=== PATIENT | female | born 1985 | race Caucasian/White ===

== ENCOUNTER 2019-09-27 09:44 | Outpatient (CLI) | payer MEDICAID, SELFPAY ==
--- NOTE | 2019-09-27 | US_ITS ---
WS: [id number] OBSTETRICAL ULTRASOUND COMPLETE HISTORY: SUPERVISION OF NORMAL FIRST IN SECOND TRIMESTER COMPARISON: None available. Single intrauterine gestation in breech presentation. Cervix is Closed and normal length. Cervical length is 5.0 cm. Normal amount of amniotic fluid surrounds the fetus. Placenta: Posterior, no previa or abruption. Placenta grade 1 Heart: 145 BPM. Four chambers are identified. No effusion on the few images submitted of the heart. Anatomy: Intracranial structures and spine are normal. kidneys, stomach and urinary bladd er are unremarkable. The abdominal wall appears abnormal. Areas of decreased echogenicity surrounding the thoracic cavity and abdominal wall. This is predominantly within the subcutaneous layer. Decreas ed echogenicity without fluid. There is no ascites. Cord insertion site is normal. Three-vessel cord. 4 extremities are present. profile: Unremarkable. Gender: Female. measurements: BPD = 5.1 cm = 21w3d HC = 19.0 cm = 21w2d AC = 16.4 cm = 21w3d FL = 3.6 cm = 21w3d AGA by ultrasound: 21 weeks 3 days RASHAUN by ultrasound: 02/04/2020 US/US OB >= 14 weeks fetus [id number] IMPRESSION: 1. Single intrauterine gestation of 21 weeks 3 days with an EDC of 02/04/2020. 2. Areas of decreased echogenicity in the subcutaneous soft tissues of the sruthi st and abdominal wall. No scalp edema. At this early gestational age this is no t likely adipose tissue. The possibility of hydrops fetalis/parvovirus infectio n should be considered. No pericardial fluid or ascites on this limited evaluat ion. 3. No anatomic abnormality.
== END 2019-09-27 09:45 | disposition home or self-care (01) ==
LOC: RADOUTREAD 11:05
PROVIDERS: Visit Provider Family Medicine
DX: Z76.89 Persons encountering health services in other specified circumstances (principal)

== ENCOUNTER 2019-11-17 10:59 | Outpatient (CLI) | payer MEDICAID, SELFPAY ==
[2019-11-17 11:40] VITALS: BP 111/73; PULSE 85; RESP 17; TEMP 36.5; O2SAT 98
[2019-11-17 12:22] VITALS: BP 111/73; PULSE 85; RESP 17; TEMP 36.5; O2SAT 98
== END 2019-11-17 12:28 | disposition home or self-care (01) ==
LOC: OPOB 11:04
PROVIDERS: PCP Family Medicine; Visit Provider Family Medicine
DX: Z34.80 Encounter for supervision of other normal pregnancy, unspecified trimester (principal); Z31.82 Encounter for Rh incompatibility status; Z67.91 Unspecified blood type, Rh negative
CPT/HCPCS: 36415; 86850; 86900; 90384; 96372; 99211

== ENCOUNTER 2020-01-30 05:22 | Inpatient (IN) | payer MEDICAID, SELFPAY ==
[2020-01-30] VITALS (22 sets, daily range): BP systolic 101–123; BP diastolic 43–79; PULSE 80–114; RESP 16–18; TEMP 36.4–37; O2SAT 97–99; BMI 30.2
[2020-01-30] MEDS: lactated ringers 1,000 ML 125 ML IV ×2 (06:16→06:39)
[2020-01-30 06:21] LABS: Basophils % 0.3 %; Eosinophils # 0.1 10^3/uL (0.0-0.8); Eosinophils % 0.8 %; Hematocrit 37.6 % (37.0-47.0); Hemoglobin 12.8 g/dL (11.5-15.3); Lymphocytes # 3.5 10^3/uL (0.8-4.8); Lymphocytes % 27.9 %; Mean Corpuscular Hemoglobin 32.1 pg (28.0-34.0); Mean Corpuscular Volume 94.2 fL (81-99); Mean Platelet Volume 10.8 fL (7.4-10.4); Monocytes # 0.7 10^3/uL (0.2-0.9); Monocytes % 5.9 %; Neutrophils # 8.2 10^3/uL (1.8-7.7); Neutrophils % 64.6 %; Nucleated Red Blood Cells % 0 %; Platelet Count 235 10^3/cmm (130-400); Red Blood Count 3.99 10^6/uL (4.1-5.3); Red Cell Distribution Width 12.8 % (12.1-15.1); White Blood Count 12.6 10^3/uL (4.0-10.0)
[2020-01-30] MEDS: citric acid-sodium citrate 30 mL UDC PO (06:39)
[2020-01-30] MEDS: famotidine 20 mg/2 mL INJ IVP (06:40)
[2020-01-30] MEDS: metoclopramide 5 mg/mL SDV 2 mL 10 MG IV (06:40)
--- NOTE | 2020-01-30 06:48 | ANES.PREANE2 ---
Pre-Anesthetic Assessment Pre-Anesthetic Assessment: Height/Weight: Height 1.65 m Weight 82.554 kg Temp Pulse Resp BP 98.5 F 90 16 114/74 01/30/20 05:35 01/30/20 05:56 01/30/20 05:35 01/30/20 05:56 Preop Diagnosis: Breech presentation Proposed Procedure: Operation Date: 01/30/20 07:00 Proposed Procedures p Section primary for breach(Not Applicable) - Caren Saucedo MD Was Beta Yuridia taken within 24 hours: N/A Last Intake: 00:00 Social: Social History: No alcohol and No tobacco Exam: Pre-Anes Outpt Exam: alert, oriented x 3, clear to auscultation bilaterally and regular rate & rhythm Airway: Submandibular: WNL Cervical ROM: WNL MP: 2 Dentition: Full History/ROS: No significant history except as noted and No significant complaints Pulmonary: Comments: Allergic rhinitis CV/HEM: CV/HEM: None reported : : None reported Hepatic: Hepatic: None reported GI: GI: GERD Metabolic: Metabolic: None reported Musc/skel: Musc/skel: None reported Neuropsych: Neuropsych: Anxiety Anesthetic Plan: ASA status: 2 Anesthesia: Regional (specify below) Other: SAB Risk of > 500 ml blood loss (7ml/kg in children): Yes, adequate IV access and fluids planned Meds/Allergies Current Medications: Current Medications Generic Name Dose Route Start Last Admin Trade Name Freq PRN Reason Stop Dose Admin Lactated Ringer's 1,000 mls @ 125 m ls/hr 01/30/20 05:35 01/30/20 06:39 Lactated Ringers IV 125 mls/hr .Q8H PRN Administration ANESTHESIA PFSH Anesthesia Female Reproductive History: : 1 Data Anesthesia CBC & Chem 7: 01/30/20 06:08 Other Labs: Laboratory Results - last 48 hr 01/30/20 06:08 WBC 12.6 H RBC 3.99 L Hgb 12.8 Hct 37.6 MCV 94.2 MCH 32.1 MCHC 34.0 RDW 12.8 Plt Count 235 MPV 10.8 H Neut % (Auto) 64.6 Lymph % (Auto) 27.9 Doddridge % (Auto) 5.9 Eos % (Auto) 0.8 Baso % (Auto) 0.3 Neut # (Auto) 8.2 H Lymph # (Auto) 3.5 Doddridge # (Auto) 0.7 Eos # (Auto) 0.1 Baso # (Auto) 0.0 Nucleated RBC % (auto) 0 Nucleated RBCs # 0.0 Cardiac Studies: No Data to Display
--- NOTE | 2020-01-30 07:30 | PM.HP ---
Providers/Chief Complaint Admitting Physician: Caren Saucedo MD Primary Care Provider: Caren Saucedo MD Chief Complaint: History of Present Illness Bridgett Busby is a 34 year old female G1, P0 at 39 weeks 5 days gestation who is here for a scheduled section secondary to breech presentation. The patient was diagnosed as breech presentation around 36 weeks gestation by ultrasound. Risk benefits and alternatives of external cephalic version versus section were discussed with the patient at length. She decided to proceed with section. Review of Systems Const: Denies: fever(s), chills or body aches Eyes: Denies: change in vision ENMT: Denies: throat pain or swelling of lips/tongue Card: Denies: chest pain or irregular heart rhythm Resp: Denies: dyspnea or productive cough GI: Reports: other (Good movement, no contractions, no loss of fluid); Denies: abdominal pain : Denies: flank pain or dysuria Skin/Breast: Denies: rash Neuro: Denies: headache(s) or numbness in extremities Chris/Lymph: Denies: easy bruising or easy bleeding Medications/Allergies Home Medications Medication Instructions Recorded Confirmed Last Taken Type 1 tab PO DAILY 11/17/19 11/17/19 Unknown History docusate sodium 100 mg PO BID #60 cap 02/01/20 Unknown Rx hydrocodone-acetaminophen 1 - 2 tab PO Q4H PRN #20 tab 02/01/20 Unknown Rx ibuprofen 800 mg PO TID PRN #30 tab 02/01/20 Unknown Rx Allergies Allergy/AdvReac Type Severity Reaction Status Date / Time No Known Allergies Allergy Verified 11/17/19 12:02 PFSH Acute Female Reproductive History: : 1 Vitals/I&O/Wt Last Vital Signs Temp 98.5 F 01/30/20 05:35 Pulse 90 01/30/20 05:56 Resp 16 01/30/20 05:35 BP 114/74 01/30/20 05:56 01/29/20 01/30/20 01/30/20 22:59 06:59 14:59 Intake Total 47.917 / 47.917 Balance 47.917 / 47.917 Weight last 48 hrs Weight 182 lb Physical Exam Const: COMMON NORMALS: no acute distress, patient oriented x3 and healthy appearing HENMT: COMMON NORMALS: normocephalic and atraumatic Eye: COMMON NORMALS: Equal, round and reactive pupils present and EOMs intact bilaterally Chest: COMMONS NORMALS: normal inspection of the chest Resp: COMMON NORMALS: normal respiratory effort and No retractions AUSCULTATION: clear to auscultation bilaterally Cardio: COMMON NORMALS: regular rate and regular rhythm GI: COMMON NORMALS: Soft to palpation and non-tender (Gravid) Extremity: GENERAL: No calf tenderness and No edema Neuro: COMMON NORMALS: patient oriented x3 Psych: COMMON NORMALS: mental status grossly normal and normal affect Data : 01/31/20 02:12 A&P Assessment and plan (1) Supervision of normal IUP (intrauterine ) in primigravida: Status: Acute (2) Breech presentation of fetus: Scheduled section Status: Acute (3) 39 weeks gestation of : Status: Acute Attestations Medical Necessity Statement*: Routine surgery and postoperative care Coding Level of Care Code Acute Prop Sawyer for Chg Fwd Exam Comprehensive Diagnoses Supervision of normal IUP (intrauterine ) in primigravida Z34.00 Breech presentation of fetus O32.1XX0 39 weeks gestation of Z3A.39
--- NOTE | 2020-01-30 08:44 | PM.OP ---
Operative Report Date of procedure: January 30, 2020 Pre-op Diagnosis: Breech presentation Post-op diagnosis: same Specimens removed/disposition: Tono breech female infant weight 7 pounds 0 ounces, 3175 g, Apgars 7 and 8 Pathology: none sent Anesthesia: Other (Spinal) Estimated blood loss (mL): 500 IV fluids (mL): 1,300 Urine output (mL): 200 Condition: stable Disposition: floor Procedure: After informed consent patient was taken to the OR where spinal anesthesia was administered. She was prepped and draped in normal sterile fashion in dorsal supine position with a left lateral tilt. After adequate spinal anesthesia was verified a Pfannenstiel incision was made and carried through to the underlying layer of fascia sharply. The fascial incision was then extended laterally using the Mayos. The fascia was grasped with Rita clamps and the underlying rectus muscles were dissected off taking care to avoid injury to the underlying tissue. The peritoneum was then entered bluntly using a hemostat. The incision was stretched manually. The bladder blade was inserted and the vesicouterine peritoneum was identified and entered sharply using the Metzenbaums. The bladder flap was then created digitally. The bladder blade was then reinserted. Uterine incision was made in a transverse fashion in the lower uterine segment. Amniotic rupture of membranes was performed sharply and clear fluid was noted. The was delivered in tono breech presentation using standard breech maneuvers. The infant was suctioned at delivery and the cord was clamped and cut. The was then handed to the waiting pediatric nurse. Cord blood was obtained. The placenta was then delivered using fundal pressure. The placenta was grossly intact and normal to inspection. The uterus was then exteriorized from the abdomen and a dry sponge was used to clear the uterus of clots and debris. Uterine incision was then repaired using 0 chromic in a running locked fashion. A second layer of the same suture was used in an imbricating manner. Excellent hemostasis was obtained and the uterus was returned to the abdomen. Irrigation was then used to clear the gutters of clots and debris and the uterine incision was reinspected for hemostasis. The peritoneum was then reapproximated using 4-0 Vicryl in a running fashion. The subfascial tissue was then inspected for hemostasis. The fascia was then reapproximated using 0 Vicryl in a running fashion. There was a small amount of serosanguineous seepage from the middle of the incision so a [id number] suture of 0 Vicryl was performed along the fascial line. The subcutaneous tissue was then irrigated and any small bleeders were coagulated using the Bovie. The subcutaneous tissue was then reapproximated using 4-0 Vicryl in a running fashion. The skin was then reapproximated using 4-0 Vicryl in a running fashion on a Jesús needle. Steri-Strips and a pressure bandage were applied and patient went to recovery in stable condition Sponge instrument and needle counts were correct Associated Problem List Diagnoses (1) 39 weeks gestation of :
[2020-01-30] MEDS: dextrose 5%-lactated ringers 1,000 ML 125 ML IV (14:34)
[2020-01-30] MEDS: ketorolac 30 mg/mL INJ IVP (14:35)
[2020-01-31 01:00] VITALS: BP 118/78; PULSE 98; RESP 16
[2020-01-31 02:36] LABS: Hematocrit 32.8 % (37.0-47.0); Mean Corpuscular HGB Conc 33.5 g/dL (30.0-36.0); Mean Corpuscular Hemoglobin 32.3 pg (28.0-34.0); Mean Corpuscular Volume 96.2 fL (81-99); Mean Platelet Volume 10.3 fL (7.4-10.4); Platelet Count 197 10^3/cmm (130-400); Red Blood Count 3.41 10^6/uL (4.1-5.3); White Blood Count 12.8 10^3/uL (4.0-10.0)
[2020-01-31 04:00] VITALS: BP 107/70; PULSE 82; RESP 16
[2020-01-31] MEDS: HYDROcodone-acetaminophen 5-325 mg Tablet PO ×2 (08:11→16:08)
[2020-01-31] MEDS: docusate sodium 100 mg Capsule PO ×2 (08:12→18:23)
--- NOTE | 2020-01-31 08:22 | PM.PN ---
Subjective Subjective: Interval history: Doing well. Pain not too bad. She had some increased bleeding overnight but it has slowed down significantly this morning Vitals/I&O/Wt Last Vital Signs Temp 98.2 F 01/30/20 22:30 Pulse 82 01/31/20 04:00 Resp 16 01/31/20 04:00 BP 107/70 01/31/20 04:00 Pulse Ox 98 01/30/20 17:45 01/30/20 01/31/20 01/31/20 22:59 06:59 14:59 Intake Total 75 / 1375 Output Total 800 / 2050 300 / 2350 Balance -725 / -675 -300 / -975 Weight last 48 hrs Weight 182 lb Physical Exam Const: COMMON NORMALS: no acute distress and average body habitus GENERAL APPEARANCE: cooperative and comfortable HENMT: COMMON NORMALS: normocephalic and atraumatic HEAD & SCALP: normocephalic and atraumatic Chest: COMMONS NORMALS: normal inspection of the chest Resp: COMMON NORMALS: normal respiratory effort, No retractions and clear to auscultation bilaterally AUSCULTATION: clear to auscultation bilaterally Cardio: COMMON NORMALS: regular rate and regular rhythm RATE: regular rate RHYTHM: regular rhythm GI: COMMON NORMALS: Soft to palpation INSPECTION: Yes other (Incision dressing clean dry and intact) AUSCULTATION: Yes normoactive bowel sounds PALPATION: Yes Soft to palpation Extremity: GENERAL: No calf tenderness and Yes edema Urinary Catheter Management^: Smith Latex: Cath Placed During This Visit: yes Reason for Continuing Indwelling Catheter: Perioperative Use in Selected Surgeries Urinary Catheter Date of Insertion: 01/30/20 Urinary Catheter Time of Insertion: 07:40 Data : 01/31/20 02:12 A&P Assessment and plan (1) Status post primary low transverse section: Doing well. Continue routine postoperative care. Status: Acute (2) Breech presentation of fetus: Status: Acute (3) 39 weeks gestation of : Status: Acute Attestations Medical Necessity Statement*: Routine postoperative and care Coding Level of Care Code Acute School Psychometrist for Chg Fwd Diagnoses Status post primary low transverse section Z98.891 Breech presentation of fetus O32.1XX0 39 weeks gestation of Z3A.39
[2020-01-31 10:11] VITALS: BP 117/80; PULSE 104; RESP 22; TEMP 37; O2SAT 98
[2020-01-31] MEDS: lanolin oint 7 gm 1 APPLIC TOPICAL (10:18)
[2020-01-31] MEDS: alum-mag-hydroxide-sime 30 mL UDC PO (10:25)
[2020-01-31] MEDS: acetaminophen 325 mg Tablet 650 MG PO (10:25)
[2020-01-31] MEDS: ferrous sulfate EC 325 mg Tablet PO (10:31)
[2020-01-31] MEDS: prenatal vitamin Capsule 1 CAP PO (10:31)
[2020-01-31 22:17] VITALS: BP 115/74; PULSE 85; RESP 16; TEMP 36.7; O2SAT 96
[2020-02-01] MEDS: HYDROcodone-acetaminophen 5-325 mg Tablet PO ×2 (03:46→07:34)
[2020-02-01 04:10] VITALS: BP 120/82; PULSE 88; RESP 16; TEMP 36.4; O2SAT 96
[2020-02-01] MEDS: prenatal vitamin Capsule 1 CAP PO (07:35)
[2020-02-01] MEDS: docusate sodium 100 mg Capsule PO (07:35)
--- NOTE | 2020-02-01 12:35 | P.DS_ITS ---
Discharge Providers GROUNDING ENGINEER Date of Admission: 01/30/20 05:22 Date of Discharge: 02/01/20 Attending Provider at Admission: Caren Saucedo MD Attending Provider at Discharge: Caren Saucedo MD Primary Care Provider: Caren Saucedo MD Diagnoses at Discharge Discharge Diagnosis (1) Status post primary low transverse section: Status: Acute (2) Breech presentation of fetus: Status: Acute (3) 39 weeks gestation of : Status: Acute Hospital Course Hospital Course: This is a 34-year-old now G1, P1 who was admitted for scheduled section secondary to breech presentation. There were no complications during the delivery. Mother and infant did well after delivery. On day #2 she was ambulating, tolerating a regular diet, had good pain control and was comfortable with discharge home. Information Peripartum Data: Infant Delivery Method: Section Physical Exam Const: COMMON NORMALS: no acute distress and patient oriented x3 GENERAL APPEARANCE: cooperative and comfortable HENMT: COMMON NORMALS: normocephalic HEAD & SCALP: normocephalic FACE & SINUS: normal facial exam Eye: COMMON NORMALS: Equal, round and reactive pupils present and EOMs intact bilaterally PUPIL: Yes Equal, round and reactive pupils present Resp: COMMON NORMALS: normal respiratory effort GI: COMMON NORMALS: Soft to palpation AUSCULTATION: Yes normoactive bowel sounds PALPATION: Yes Soft to palpation and Yes Other GI palpation findings present (Incision clean dry and intact, appropriate postoperative tenderness) Extremity: GENERAL: No calf tenderness and No edema Neuro: COMMON NORMALS: patient oriented x3 Psych: COMMON NORMALS: mental status grossly normal Urinary Catheter Management^: Smith Latex: Cath Placed During This Visit: yes, but has since been removed by the nurse Reason for Continuing Indwelling Catheter: Required Immobilization for Trauma or Surgery or Anesthesia Urinary Catheter Date of Insertion: 01/30/20 Urinary Catheter Time of Insertion: 07:40 Date Urinary Catheter Removed: 01/31/20 Time Urinary Catheter Discontinued: 10:00 Discharge Data Vitals: Last Vital Signs Temp 97.6 F 02/01/20 04:10 Pulse 88 02/01/20 04:10 Resp 16 02/01/20 04:10 BP 120/82 02/01/20 04:10 Pulse Ox 96 02/01/20 04:10 Discharge Plan Discharge Patient Disposition: Home, Self-Care Condition: Stable Prescriptions: New hydrocodone-acetaminophen 5-325 mg Tablet 1 - 2 tab PO Q4H PRN (Reason: Moderate To Severe Pain) Qty: 20 RF: 0 ibuprofen 800 mg Tablet 800 mg PO TID PRN (Reason: Abdominal Discomfort) Qty: 30 RF: 0 docusate sodium 100 mg Capsule 100 mg PO BID Qty: 60 RF: 0 Continued 28-800 mg-mcg Tablet 1 tab PO DAILY RF: 0 Discharge Orders: Discharge Order (Routine); Ordered 02/01/20 Ordered By: Caren Saucedo Referrals: Caren Saucedo MD [Primary Care Provider] - 4-7 days (and in one month) Discharge Diet: Usual diet Discharge Activity: Limit activity as instructed Discharge Attestations GROUNDING ENGINEER Time Spent in Discharge Care*: less than 30 min Coding Level of Care Code Acute Parlor Chaperone for Chg Fwd Diagnoses Status post primary low transverse section Z98.891 Breech presentation of fetus O32.1XX0 39 weeks gestation of Z3A.39
[2020-02-01 13:45] VITALS: BP 116/82; PULSE 112; RESP 16; TEMP 36.8
[2020-02-01 14:15] VITALS: BP 116/82; PULSE 112; RESP 16; TEMP 36.8
== END 2020-02-01 14:05 | disposition home or self-care (01) | DRG 788 ==
PROVIDERS: Admitting Provider Family Medicine; PCP Family Medicine; Visit Provider Family Medicine
PROC: 10D00Z1 Extraction of Products of Conception, Low, Open Approach (ICD-10-PCS; CPT 59514; principal; 2020-01-30 07:00)
DX: O64.1XX0 Obstructed labor due to breech presentation, not applicable or unspecified (principal); Z3A.39 39 weeks gestation of pregnancy; Z37.0 Single live birth
CPT/HCPCS: 12345; 51702; 59025; 59409; 85025; 85027; 86900; 96375; 98960; J0690; J1885; J2274; J2370; J2590; J2765; J3010; J3490; J7030